=== PATIENT | male | born 1950 | race Caucasian/White ===

== ENCOUNTER 2019-10-17 08:54 | Day surgery (SDC) | payer OTHER ==
--- NOTE | 2019-10-16 17:18 | RAD REPORT ---
EXAM DESCRIPTION: Ryan Young (2 Views)10/16/2019 5:06 pm CLINICAL HISTORY: Preop for gallbladder surgery COMPARISON: 2010 FINDINGS: The lungs appear clear of acute infiltrate. The heart is normal size IMPRESSION: No acute abnormalities displayed
[2019-10-16 17:31] LABS: Basophils % 0.5 % (0-1.3); Hematocrit 39.8 % (39.6-49.0); Lymphocytes % 21.9 % (15.3-44.8); MPV 10.4 fL (7.6-11.3); RBC Red Blood Cell Count 4.41 M/uL (4.33-5.43)
[2019-10-16 18:06] LABS: Potassium 4.4 mmol/L (3.5-5.1)
[2019-10-16 18:27] LABS: Albumin 3.6 g/dL (3.4-5.0); Bilirubin Direct 0.1 mg/dL (0-0.2); Bilirubin Total 0.4 mg/dL (0.2-1.0); Protein, Total 6.5 g/dL (6.4-8.2)
--- NOTE | 2019-10-17 06:46 | EKG ---
Test Date: 2019-10-16 Test Time: 16:38:30 Equity Sales Assistant: RUBA MEASUREMENT RESULTS: Intervals: Rate: 65 AK: 156 QRSD: 92 QT: 398 QTc: 413 Cuthbert: P: 37 AK: 156 QRS: 3 T: 7 INTERPRETIVE STATEMENTS: Normal sinus rhythm Normal ECG Compared to ECG 06/29/2011 13:35:23 Sinus bradycardia no longer present Left ventricular hypertrophy no longer present Electronically Signed On 10-17-19 06:45:04 SCIENTIST PROPAGATOR by Stephon Neumann
[2019-10-17] MEDS ORDERED: Ringers Lactate 1,000 ML IV ONE (09:09)
[2019-10-17] MEDS ORDERED: CEFOXITIN/SWI 1gm 1 GM/10 ML SYR ONE (09:09)
[2019-10-17] MEDS ORDERED: LIDOCAINE 1% MPF 5 ML VIAL ONE (09:55)
[2019-10-17] MEDS ORDERED: propofoL 200 MG/20 ML VIAL IV ONE (09:55)
[2019-10-17] MEDS ORDERED: MIDAZOLAM HCL 2 MG/2 ML INJ ONE (09:55)
[2019-10-17] MEDS ORDERED: ROCURONIUM 50 MG/5 ML VIAL IV ONE (09:55)
[2019-10-17] MEDS ORDERED: FENTANYL CITR 100 MCG/2 ML ONE ×2 (09:55→10:42)
[2019-10-17] MEDS ORDERED: KETOROLAC 30 MG/ML INJ ONE (10:28)
[2019-10-17] MEDS ORDERED: GLYCOPYRROLATE 0.2 MG/ML SYR ONE ×3 (10:28→11:01)
[2019-10-17] MEDS ORDERED: NEOSTIGMINE 1 MG/ML -5 ML ONE (10:29)
[2019-10-17] MEDS ORDERED: ONDANSETRON 4 MG/2 ML VIAL ONE (10:29)
[2019-10-17] MEDS: HYDROMORPHONE HCL 1 MG/ML INJ ONE ×2 (11:23→11:40)
[2019-10-17] MEDS: PROMETHAZINE INJ 25 MG/ML AMP ONE ×2 (11:23→11:40)
[2019-10-17 12:12] VITALS: TEMP 97.9; O2SAT 100
[2019-10-17] MEDS ORDERED: HYDROCODONE/APAP 7.5/325 MG TAB ONE (12:44)
[2019-10-17 13:40] VITALS: BP 146/69
--- NOTE | 2019-10-18 00:57 | OP ---
Date of Procedure: 10/17/2019 Surgeon: Jeremie Gardner MD Paraoptometric: OSCAR Godinez Preoperative Diagnosis: Symptomatic cholelithiasis. Postoperative Diagnoses: Symptomatic cholelithiasis and extensive adhesions. Procedure: Laparoscopic cholecystectomy and lysis of adhesions. Estimated Blood Loss: Minimal. Findings: As above. Anesthesia: General. Complications: None. Disposition: Patient tolerated the procedure in stable condition, taken to Recovery in good general condition. Procedure In Detail: Patient was brought to the OR and placed in supine position. General anesthesi a was begun. The patient was prepped and draped in the usual sterile fashion. Marcaine 0.5% was inf iltrated locally. A 15-blade was used to make a 1 cm infraumbilical midline incision. Subcutaneous tissue was divided. Fascia was identified and divided. #1 Vicryl stay suture was placed. Peritonea l cavity was entered with sharp and blunt dissection. A 12-mm trocar was placed into the peritoneal cavity under direct vision. Pneumoperitoneum was established and then three 5 mm trocars were placed , one in the epigastrium just right of midline and two in the right subcostal region. Laparoscopy re vealed extensive omental adhesions to the gallbladder, which were taken down with LigaSure. Quite a bit of time was utilized dissecting this free from the gallbladder and then the fundus was identified finally and retracted superiorly. Infundibulum was identified and retracted inferolaterally. Cysti c duct and cystic artery were clearly identified with blunt dissection. Clips were placed. Both the structures were divided. Cautery was used to remove the gallbladder from the liver bed. Bleeding o n the liver bed was controlled with cautery. Gallbladder was retrieved through the umbilicus via an EndoCatch bag. Right upper quadrant was irrigated. Effluent was clear. No evidence of bleeding or bile leakage appreciated. Subsequently, all trocars were removed under direct vision. Stay sutures were tied to each other across the fascial defect. Subcutaneous wounds were irrigated. Bleeding was controlled with cautery. 3-0 chromic was used to approximate the subcutaneous tissue and close the skin. Sterile dressing was applied. Patient was awakened and taken to Recovery in good general cond ition. Discharge Note: Patient will go to day surgery and home when stable. Disposition: Home. Condition: Stable. Discharge Instructions: Resume home medications and diet. Activity as tolerated, no heavy lifting. Remove outer dressing in 2 days. Shower. Keep the wound clean and dry. Keep Steri-Strips on at al l times. Follow up in my office in 1 week, call for appointment. Incentive spirometry as ordered. Tylenol No. 3 one tablet p.o. q.4 p.r.n. pain. /MODL Voice ID: [id number] Report ID: [id number]
== END 2019-10-17 13:30 | disposition home or self-care (01) ==
LOC: OR 08:54
PROVIDERS: ATTEND Surgery
PROC: 0DNU4ZZ Release Omentum, Percutaneous Endoscopic Approach (ICD-10-PCS; 2019-10-17)
PROC: 0FT44ZZ Resection of Gallbladder, Percutaneous Endoscopic Approach (ICD-10-PCS; principal; 2019-10-17 10:15)
DX: K80.10 Calculus of gallbladder with chronic cholecystitis without obstruction (principal); K66.0 Peritoneal adhesions (postprocedural) (postinfection); Z88.2 Allergy status to sulfonamides
CPT/HCPCS: 93005; 85025; 80048; 36415; 82150; 80076; 88304; 71046; 47562; 49329; J2704; J2550; J2250; J3010 ×2; J1170; J2710; J7120; J2405